=== PATIENT | male | born 1990 | race Asian ===

== ENCOUNTER 2018-12-14 18:59 | Inpatient (IN) | payer MEDICAID, OTHER ==
[~2018-12-14] VITALS: Ht 170.2 cm; Wt 57.3 kg
[2018-12-15] MEDS ORDERED: CLINDAMYCIN 600 MG/4 ML VL IM ONE (01:00)
[2018-12-15] MEDS ORDERED: cefTRIAXone 1GM/50ML D5W 50 ML IV ONE (01:00)
[2018-12-15 01:20] LABS: Basophils # (auto) 0 uL; Basophils % (auto) 0.3 % (0.0-2.0); Eosinophils # (auto) 0.2 uL; Eosinophils % (auto) 2.7 % (0.0-7.0); Hemoglobin 14.8 g/dL (13.5-17.5); Lymphocytes # (auto) 1.8 uL; Lymphocytes % (auto) 23.1 % (10.0-50.0); Mean Corpuscular Hgb Conc. 32.8 g/dL (32.0-36.0); Mean Corpuscular Volume 91.3 fL (80.0-100.0); Monocytes # (auto) 0.6 uL; Monocytes % (auto) 6.9 % (0.0-12.0); Neutrophils # (auto) 5.3 uL; Platelet Count (auto) 301 10^3/uL (140-450); Red Blood Cells 4.93 10^6/uL (4.5-5.90); White Blood Cell 7.9 10^3/uL (4.4-10.8)
[2018-12-15] MEDS ORDERED: VANCOMYCIN 1GM/250ML 250 ML IV ONE (01:30)
[2018-12-15 01:35] LABS: INR < 0.93 (0.9-1.15); Partial Thromboplastin Time 29.7 sec (23.64-32.05)
[2018-12-15 01:39] LABS: Albumin 3.3 g/dL (3.4-5.0); Calcium 8.4 mg/dL (8.5-10.1); Potassium 3.7 mmol/L (3.5-5.1)
[2018-12-15 01:44] LABS: Bilirubin, Total 0.2 mg/dL (0.2-1.0); Total Protein 7.1 g/dL (6.4-8.2)
[2018-12-15] MEDS ORDERED: SODIUM CHLORIDE 0.9% 1,000 ML IV ONE (04:30)
[2018-12-15] MEDS ORDERED: ACETAMINOPHEN 325 MG TAB PO PRN (04:30)
[2018-12-15] MEDS ORDERED: HYDROcodone-ACET 5/325MG TAB PO PRN (04:30)
[2018-12-15] MEDS ORDERED: ONDANSETRON HCL 4 MG/2 ML VIAL IV PRN (04:30)
[2018-12-15] MEDS ORDERED: TEMAZEPAM 15 MG CAP PO PRN (04:30)
[2018-12-15 05:06] LABS: Alcohol, Urine < 3.0 mg/dL (0-5); Amphetamine Screen, Urine POSITIVE (NEGATIVE); Barbiturate Scree,Urine NEGATIVE (NEGATIVE); Benzodiazephine Screen, Urine NEGATIVE (NEGATIVE); Cannabinoid Screen, Urine POSITIVE (NEGATIVE); Cocaine Screen, Urine NEGATIVE (NEGATIVE); Opiate Scree,Urine NEGATIVE (NEGATIVE); Phencyclidine Screen, Urine NEGATIVE (NEGATIVE)
[2018-12-15 05:16] LABS: Urine Bacteria NONE SEEN /hpf (None Seen); Urine Blood Negative /uL (Negative); Urine Specific Gravity 1.022 (1.001-1.035); Urine WBC <1 /hpf (0 - 3)
[2018-12-15] MEDS: CLINDAMYCIN 600MG IV 50 ML IV SCH ×3 (07:38→21:49)
[2018-12-15] MEDS: FAMOTIDINE 20 MG TAB PO SCH ×2 (10:25→21:50)
--- NOTE | 2018-12-15 15:15 | NUR ---
Patient Arrived on Unit Pt arrived on unit via wheel chair. Pt is a/ox4 with no s/s of distress or SOB. Pt ambulated to bed without difficulty. Will continue to monitor.
[2018-12-15 15:26] VITALS: BP 123/73
[2018-12-15] MEDS ORDERED: SODIUM CHLORIDE 0.9% 1,000 ML IV SCH (16:15)
[2018-12-15 17:44] VITALS: BP 123/73
--- NOTE | 2018-12-15 19:10 | NUR ---
OPENING NOTE Received report from day shift RN. Patient is A&O X's 4 with no s/s of distress noted. Patient c/o some itching to bilateral upper extremities where there appears to be insect bites and is red. He states that he is not in any pain. Will medicate as ordered for itching. Educated patient on POC and to use call light when in need of assistance. Patient verbalized understanding. Patient is about to take a shower. Will continue care.
[2018-12-15] MEDS: diphenhdrAMINE HCL 25 MG CAP PO PRN (20:16)
[2018-12-15 22:28] VITALS: BP 151/55
[2018-12-15 22:31] VITALS: BP 138/74
[2018-12-16] MEDS: cefTRIAXone 1GM/50ML D5W 50 ML IV SCH (00:31)
[2018-12-16] MEDS: CLINDAMYCIN 600MG IV 50 ML IV SCH ×3 (05:52→22:22)
[2018-12-16 05:55] VITALS: BP_SYST 144; BP_SYST 158; BP_DIAS 71; BP_DIAS 81
[2018-12-16] MEDS: diphenhdrAMINE HCL 25 MG CAP PO PRN ×3 (05:58→22:22)
[2018-12-16 07:30] LABS: Basophils # (auto) 0 uL; Basophils % (auto) 0.5 % (0.0-2.0); Eosinophils # (auto) 0.3 uL; Eosinophils % (auto) 6.1 % (0.0-7.0); Hemoglobin 14.3 g/dL (13.5-17.5); Lymphocytes # (auto) 1.3 uL; Lymphocytes % (auto) 31.3 % (10.0-50.0); Mean Corpuscular Hemoglobin 30.7 pg (28.0-32.0); Mean Corpuscular Hgb Conc. 34.1 g/dL (32.0-36.0); Mean Corpuscular Volume 90.1 fL (80.0-100.0); Monocytes # (auto) 0.4 uL; Monocytes % (auto) 9.4 % (0.0-12.0); Neutrophils # (auto) 2.2 uL; Neutrophils % (auto) 52.7 % (37.0-80.0); Nucleated Red Blood Cells % 0.1 %; Platelet Count (auto) 277 10^3/uL (140-450); Red Blood Cells 4.66 10^6/uL (4.5-5.90); Red Cell Distribution Width 13.4 % (11.8-14.3); White Blood Cell 4.3 10^3/uL (4.4-10.8)
[2018-12-16 07:48] LABS: Calcium 8.8 mg/dL (8.5-10.1); Potassium 4.2 mmol/L (3.5-5.1)
[2018-12-16 07:50] LABS: BUN/Creatinine Ratio 19.4
[2018-12-16 08:42] VITALS: BP 136/77
[2018-12-16] MEDS: FAMOTIDINE 20 MG TAB PO SCH ×2 (09:48→22:22)
[2018-12-16 12:00] VITALS: BP 136/78
[2018-12-16] MEDS: SODIUM CHLORIDE 0.9% 1,000 ML IV SCH (12:15)
[2018-12-16] MEDS: HYDROCORTONE 1% TOPICAL CREAM 30 GM TUBE TOP SCH ×2 (12:30→22:00)
--- NOTE | 2018-12-16 14:24 | NUR ---
Assessment Pt is a 28 yr old alert and oriented male. Pt stated that he was admitted due to several bites on his arm by and unknown creature. Pt lives alone, is ambulatory and independent with ADL's, cooking and cleaning. Pt didn't want to talk about how he earns money and doesn't have an AD. Pt stated that he will have a family member come pick him up upon d/c. Pt plans to d/c home upon medical clearance. No needs or concerns expressed. Addendum: 12/16/18 at 1431 by NATAN ROCHA Amended: Links added.
[2018-12-16 16:51] VITALS: BP 121/72
--- NOTE | 2018-12-16 19:00 | NUR ---
OPENING NOTE Received report from day shift RN. Patient is currently resting in bed with no s/s of distress seen. Respirations are even and unlabored. Bed is in lowest/locked position with side rails up X's 2 and call light is within reach of patient. Will continue care.
[2018-12-16 22:56] VITALS: BP 129/76
[2018-12-17] MEDS: cefTRIAXone 1GM/50ML D5W 50 ML IV SCH (03:32)
[2018-12-17 05:39] VITALS: BP 122/62
[2018-12-17] MEDS: CLINDAMYCIN 600MG IV 50 ML IV SCH (06:22)
[2018-12-17 08:00] VITALS: BP 140/74
[2018-12-17] MEDS: SODIUM CHLORIDE 0.9% 1,000 ML IV SCH (08:39)
[2018-12-17] MEDS: FAMOTIDINE 20 MG TAB PO SCH (10:19)
[2018-12-17] MEDS: HYDROCORTONE 1% TOPICAL CREAM 30 GM TUBE TOP SCH (10:19)
== END 2018-12-17 12:53 | disposition home or self-care (01) | DRG 383 ==
LOC: ER 18:59 → OVERFLOW 19:00 → WEST WING 12-15 15:15
PROVIDERS: ADMIT Nurse Practitioner; ATTEND Internal Medicine
DX: L03.113 Cellulitis of right upper limb (principal); N17.0 Acute kidney failure with tubular necrosis; F20.9 Schizophrenia, unspecified; E86.0 Dehydration; S50.861A Insect bite (nonvenomous) of right forearm, initial encounter; F15.10 Other stimulant abuse, uncomplicated; F41.0 Panic disorder [episodic paroxysmal anxiety]; J45.909 Unspecified asthma, uncomplicated; F19.10 Other psychoactive substance abuse, uncomplicated; F11.10 Opioid abuse, uncomplicated; F17.210 Nicotine dependence, cigarettes, uncomplicated; W57.XXXA Bitten or stung by nonvenomous insect and other nonvenomous arthropods, initial encounter; F32.9 Major depressive disorder, single episode, unspecified; Z88.8 Allergy status to other drugs, medicaments and biological substances; Y93.89 Activity, other specified; Y92.89 Other specified places as the place of occurrence of the external cause; Y99.8 Other external cause status; Z71.51 Drug abuse counseling and surveillance of drug abuser
CPT/HCPCS: 36415; 73200; 80048; 80053; 80307; 81001; 82962; 83605; 85025; 85610; 85730; 87040; 96361; 96365; 96368; G0378; J0696; J3490